=== PATIENT | female | born 1950 | race Two or more races ===

== ENCOUNTER 2018-07-13 11:42 | Outpatient (CLI) | payer OTHER ==
[~2018-07-13] VITALS: Ht 165.1 cm; Wt 70.3 kg
== END 2018-07-13 13:27 | disposition home or self-care (01) ==
LOC: OFIC 805 11:42
DX: R49.0 Dysphonia (principal); H61.23 Impacted cerumen, bilateral; K21.0 Gastro-esophageal reflux disease with esophagitis

== ENCOUNTER 2025-04-26 15:42 | Emergency (ER) | payer OTHER ==
[~2025-04-26] VITALS: Ht 165.1 cm; Wt 73.5 kg
[~2025-04-26 15:42] MED LIST: CODE1TAB37 PO; FLONASE16 G1 NS; LEVOTHYROXINE25 MCG; MOTION SICKNESS25 M5 PO; OMEPRAZOLE40 MG PO; PEPCID AC10 MG; PROPECIA1 MG PO; Septra Ds Tablet PO; XARELTO10 MG PO; ZANTAC300 MG PO
[2025-04-26] MEDS ORDERED: ACETAMINOPHEN 500 MG GEL..CAP PO STA (18:03)
[2025-04-26] MEDS ORDERED: METHYLPREDNISOLONE SOD SUCC 40 MG VIAL IM STA (18:04)
[2025-04-26] MEDS ORDERED: MEDROLPACK PO (19:35)
[2025-04-26] MEDS ORDERED: TYLENOL ARTHRI650 MG PO (19:35)
== END 2025-04-26 20:08 | disposition home or self-care (01) ==
LOC: ER 15:42
DX: M25.551 Pain in right hip (principal); Z91.013 Allergy to seafood; Z88.6 Allergy status to analgesic agent; Z88.0 Allergy status to penicillin; E03.8 Other specified hypothyroidism